=== PATIENT | female | born 1990 ===

== ENCOUNTER → 2018-08-14 | Outpatient (REF) | payer BC | LOC: M LAB REF 16:35 | PROVIDERS: ATTEND Physician Assistant | DX: N39.0 Urinary tract infection, site not specified (principal) ==

== ENCOUNTER → 2018-09-25 | Outpatient (REF) | payer BC | LOC: M LAB REF 16:19 | PROVIDERS: ATTEND Physician Assistant | DX: N89.8 Other specified noninflammatory disorders of vagina (principal) ==

== ENCOUNTER → 2018-12-10 | Outpatient (REF) | payer BC | LOC: M LAB REF 09:14 | PROVIDERS: ATTEND Physician Assistant | DX: J02.9 Acute pharyngitis, unspecified (principal) ==

== ENCOUNTER → 2018-12-29 | Outpatient (REF) | payer BC ==
[2018-12-29 14:45] LABS: FREE T4 0.87 NG/DL (0.76-1.46); THYROID STIMULATING HORMONE 0.984 uIU/ML (0.358-3.740)
[2018-12-29 14:46] LABS: LUTEINIZING HORMONE 35.4 mIU/mL
[2018-12-29 14:47] LABS: FOLLICLE STIMULATING HORMONE 10.6 mIU/mL
[2018-12-31 00:15] LABS: TESTOSTERONE FREE (DIRECT) 2.1 pg/mL (0.0-4.2)
== END ==
LOC: M LAB REF 13:20
PROVIDERS: ATTEND Obstetrics & Gynecology
DX: N92.1 Excessive and frequent menstruation with irregular cycle (principal)

== ENCOUNTER → 2021-05-18 | Outpatient (REF) | LOC: M LAB LCGH 09:09 | PROVIDERS: ATTEND Obstetrics & Gynecology Reproductive Endocrinology | DX: Z79.818 Long term (current) use of other agents affecting estrogen receptors and estrogen levels (principal) ==

== ENCOUNTER → 2021-05-24 | Outpatient (REF) | LOC: M LAB LCGH 09:52 | PROVIDERS: ATTEND Obstetrics & Gynecology Reproductive Endocrinology | DX: Z13.29 Encounter for screening for other suspected endocrine disorder (principal) ==